=== PATIENT | female | born 1950 | race Caucasian/White ===

== ENCOUNTER 2017-12-17 18:23 | Emergency (ER) | payer MEDICARE ==
[~2017-12-17] VITALS: Ht 175.3 cm; Wt 71.0 kg
[2017-12-17 19:37] LABS: HEMATOCRIT 41.6 % (37.0-47.0); HEMOGLOBIN 14.2 g/dl (12.0-16.0); IMMATURE GRANULOCYTES 0.1 % (0.0-1.0); MEAN CELL VOLUME 89.7 fL CALC (80.0-100.0); MEAN CORPUSCULAR HGB 30.6 pG CALC (26.0-32.0); MEAN CORPUSCULAR HGB CONC 34.1 g/L CALC (32.0-36.0); NEUT# 3.78 thou/uL (2.00-7.15); RED BLOOD COUNT 4.64 mill/uL (4.20-5.60); RED CELL DISTRI WIDTH 12.6 % (11.5-15.5)
[2017-12-17 19:40] LABS: URINE BILIRUBIN - DIPSTICK NEGATIVE (NEGATIVE); URINE BLOOD DIPSTICK NEGATIVE (NEGATIVE); URINE COLOR YELLOW; URINE GLUCOSE - DIPSTICK NEGATIVE (NEGATIVE); URINE KETONE NEGATIVE (NEGATIVE); URINE NITRITE - DIPSTICK NEGATIVE (Negative); URINE PH 7.5 (4.5-8.0); URINE PROTEIN - DIPSTICK NEGATIVE (NEG-TRACE); URINE UROBILINOGEN - DIPSTICK 0.2 E.U./dL (0.2)
[2017-12-17 19:43] LABS: URINE CLARITY CLEAR; URINE LEUK ESTERASE MODERATE (NEGATIVE)
[2017-12-17 19:53] LABS: URINE RBC 0-2 RBC/hpf (0-5); URINE SQUAMOUS EPITHELIAL CELL FEW EPI/hpf (0-FEW)
[2017-12-17 19:55] LABS: ALBUMIN 4.9 g/dL (3.2-5.0); ALKALINE PHOSPHATASE 63 u/l (38-126); AMYLASE 34 u/l (30-110); ANION GAP 21 (6-22 (CALC)); BILIRUBIN, TOTAL 0.5 mg/dL (0.0-1.4); BUN 25 mg/dL (8-23); BUN/CREATININE RATIO 27 (12-20 (CALC)); CARBON DIOXIDE 22 mmol/l (22-30); CHLORIDE 107 mmol/l (95-108); CREATININE 0.9 mg/dL (0.5-1.0); GFR > 60 ML/MIN (>=60 (CALC)); GFR FOR AFR.AMER. > 60 ML/MIN (>=60 (CALC)); LIPASE 226 u/l (23-300); SGOT/AST 26 u/l (9-36); SGPT/ALT 23 u/l (11-66); SODIUM 145 mmol/l (137-146); TOTAL PROTEIN 7.6 g/dL (6.3-8.2)
[2017-12-17] MEDS ORDERED: LEVAQUIN500 MG PO (22:13)
[2017-12-17] MEDS ORDERED: ULTRAM50 M1 PO (22:13)
[2017-12-17 22:33] VITALS: BP 111/56
== END 2017-12-17 22:33 | disposition home or self-care (01) ==
LOC: ED 18:23
PROVIDERS: Emergency Medicine
DX: N39.0 Urinary tract infection, site not specified (principal); R10.32 Left lower quadrant pain; N28.1 Cyst of kidney, acquired; R00.1 Bradycardia, unspecified
CPT/HCPCS: J1956

== ENCOUNTER 2022-09-11 08:18 | Day surgery (SDC) | payer MEDICARE ==
[~2022-09-11] VITALS: Ht 175.3 cm; Wt 69.4 kg
[~2022-09-11 08:18] MED LIST: FISH OIL600 MG PO; LEVAQUIN500 MG PO; MAGNESIUM 250 M1 TAB PO; METFORMIN HCL500 M2 PO; MULTI VIT PO; PRAVASTATIN SOD20 MG PO; ULTRAM50 M1 PO; VITAMIN B COMPL1 TAB PO
[2022-09-11 12:12] VITALS: BP 120/55
== END 2022-09-11 12:10 | disposition home or self-care (01) ==
LOC: ENDO 08:18 → ORM 11:30 → ENDO 12:10 → ORM 12:50 → ENDO 12:50
PROVIDERS: ATTEND Internal Medicine Gastroenterology
PROC: 0DJD8ZZ Inspection of Lower Intestinal Tract, Via Natural or Artificial Opening Endoscopic (ICD-10-PCS; principal; 2022-09-11)
DX: R19.5 Other fecal abnormalities (principal); K64.8 Other hemorrhoids

== ENCOUNTER 2024-10-28 09:13 | Emergency (ER) | payer MEDICARE ==
[~2024-10-28] VITALS: Ht 175.3 cm; Wt 63.5 kg
[2024-10-28 09:29] VITALS: BP 132/53
[2024-10-28] MEDS ORDERED: HYDROcodone/Acetaminophen 1 COMBO TAB PO ONE (09:40)
[2024-10-28 09:46] VITALS: BP 101/44
[2024-10-28 09:52] VITALS: BP 118/49
[2024-10-28] MEDS ORDERED: ISOVUE-300 (Iopamidol) 100 ML SDV IV ONE (09:55)
[2024-10-28 10:32] LABS: CREATININE 0.9 mg/dL (0.5-1.0); POTASSIUM 4.6 mmol/l (3.5-5.1)
[2024-10-28 10:45] VITALS: BP 101/53
[2024-10-28 12:13] VITALS: BP 101/53
== END 2024-10-28 12:15 | disposition home or self-care (01) ==
LOC: ED 09:13
PROVIDERS: Family Medicine
DX: S40.012A Contusion of left shoulder, initial encounter (principal); E11.9 Type 2 diabetes mellitus without complications; Z79.84 Long term (current) use of oral hypoglycemic drugs; V28.39XA Person boarding or alighting other motorcycle injured in noncollision transport accident, initial encounter
CPT/HCPCS: Q9967